=== PATIENT | male | born 1965 | race Caucasian/White ===

== ENCOUNTER 2016-10-12 08:37 | Emergency (ER) | payer MEDICARE ==
[2016-10-12 10:01] LABS: HEMOGLOBIN 15.1 gm/dl (14.0-17.5); RED BLOOD COUNT 4.8 M/UL (4.20-5.50); WHITE BLOOD COUNT 4.8 K/UL (4.5-11.0)
[2016-10-12 10:28] LABS: BUN/CREATININE RATIO 11 (0-10)
== END 2016-10-12 14:08 | disposition home or self-care (01) ==
LOC: ER1 08:37
PROVIDERS: Emergency Medicine
DX: E87.1 Hypo-osmolality and hyponatremia (principal); C67.9 Malignant neoplasm of bladder, unspecified; F41.9 Anxiety disorder, unspecified; F17.200 Nicotine dependence, unspecified, uncomplicated; Z79.899 Other long term (current) drug therapy
CPT/HCPCS: 36415; 71010; 80053; 81001; 82550; 82553; 83874; 84443; 84484; 85025; 96361; 96374; 99285; J2405

== ENCOUNTER → 2016-10-13 | Outpatient (CLI) | payer MEDICARE ==
[2016-10-13 10:17] LABS: BUN/CREATININE RATIO 10 (0-10)
== END ==
LOC: LAB 08:19
PROVIDERS: Emergency Medicine
DX: E87.1 Hypo-osmolality and hyponatremia (principal)
CPT/HCPCS: 36415; 80053

== ENCOUNTER → 2016-10-26 | Outpatient (CLI) | payer MEDICARE | LOC: KOH-I 08:00 | DX: R74.8 Abnormal levels of other serum enzymes (principal); K76.0 Fatty (change of) liver, not elsewhere classified | CPT/HCPCS: 76705 ==

== ENCOUNTER → 2016-11-03 | Outpatient (CLI) | payer MEDICARE ==
[2016-11-03 10:16] LABS: BUN/CREATININE RATIO 22 (0-10)
== END ==
LOC: LAB 08:53
PROVIDERS: Internal Medicine Nephrology
DX: R74.8 Abnormal levels of other serum enzymes (principal); E87.1 Hypo-osmolality and hyponatremia
CPT/HCPCS: 36415; 80048; 83930; 83935; 84133; 84300